=== PATIENT | female | born 1945 | race Caucasian/White ===

== ENCOUNTER 2018-02-04 15:19 | Emergency (ER) | payer OTHER, MEDICARE ==
[2018-02-04 15:31] VITALS: RESP 16
[2018-02-04] MEDS ORDERED: ACETAMINOPHEN 500 MG 500 MG TAB PO ONE (16:59)
[2018-02-04] MEDS ORDERED: ACETAMINOPHEN 500 MG 500 MG TAB ONE (17:08)
[2018-02-04 19:24] VITALS: TEMP 99.3; O2SAT 97
[2018-02-04 19:25] VITALS: BP 144/95; PULSE 77
== END 2018-02-04 17:38 | disposition home or self-care (01) | DRG 999 ==
LOC: ED 15:19
DX: V49.9XXA Car occupant (driver) (passenger) injured in unspecified traffic accident, initial encounter (principal); R10.30 Lower abdominal pain, unspecified; M43.6 Torticollis
CPT/HCPCS: 72040; 99283; L0130